=== PATIENT | female | born 2000 | race Two or more races ===

== ENCOUNTER 2018-11-05 20:44 | Emergency (ER) | payer MEDICAID ==
[~2018-11-05] VITALS: Ht 154.9 cm; Wt 77.1 kg
[2018-11-05 20:48] VITALS: BP 137/78
[2018-11-05] MEDS ORDERED: NKM (20:53)
[2018-11-05 20:55] VITALS: BP 131/74
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
[2018-11-05] MEDS ORDERED: IBUPROFEN600 MG ORAL (21:12)
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
== END 2018-11-05 21:30 | disposition home or self-care (01) ==
LOC: EMR 21:17
DX: S00.83XA Contusion of other part of head, initial encounter (principal); Y04.2XXA Assault by strike against or bumped into by another person, initial encounter
CPT/HCPCS: 99282